=== PATIENT | female | born 1975 | race Asian ===

== ENCOUNTER 2025-07-29 15:05 | Emergency (ER) | payer SELFPAY ==
[2025-07-29] MEDS ORDERED: DIPHENHYDRAMINE 50 MG/ML VIAL ONE (15:34)
[2025-07-29] MEDS ORDERED: NA CHLORIDE 0.9% 1,000 ML ONE (15:34)
[2025-07-29] MEDS ORDERED: ONDANSETRON 4 MG/2 ML VIAL ONE (15:34)
[2025-07-29 16:17] LABS: Absolute Lymphocytes (CBC) 1.7 K/uL (0.7-4.9); Hematocrit 48.5 % (36.0-45.0); Hemoglobin 15.9 g/dL (12.0-15.0); MCH 28.2 pg (27.0-35.0); MCHC 32.8 g/dL (32.0-36.0); MCV 86.1 fL (80-100); MPV 10.6 fL (7.6-11.3); Nucleated RBC Absolute Count 0.0 (0-0); Nucleated Red Blood Cells % 0.2 % (0-0); RBC Red Blood Cell Count 5.63 M/uL (3.86-4.86); White Blood Count 7.50 thou/uL (4.3-10.9)
[2025-07-29 16:35] LABS: Anion Gap 12.5 mEq/L (5.0-15.0); BUN Blood Urea Nitrogen 8.0 mg/dL (7-18); Glucose Level 151.0 mg/dL (74-106)
[2025-07-29 16:36] LABS: ALT/SGPT 37.0 U/L (13-56); Albumin 3.5 g/dL (3.4-5.0); Albumin/Globulin Ratio 1.0 (1.1-1.8); Alkaline Phosphatase 51.0 U/L (45-117); Globulin 3.4 g/dL (2.3-3.5); Lipase 64.0 U/L (13-75)
[2025-07-29 16:37] LABS: AST/SGOT 47.0 U/L (15-37); Potassium 4.5 mEq/L (3.5-5.1)
--- NOTE | 2025-07-29 17:46 | RAD REPORT ---
EXAMINATION: CT Abdomen Pelvis W Contrast CLINICAL INDICATION: Female, 49 years old. ABD PAIN TECHNIQUE: CT abdomen and pelvis was performed, after the administration of IV contrast, [facility] Axial, sagittal and coronal reconstructions were obtained. One or more of the following dose reduction techniques were used: Automated exposure control, adjustment of the mA and k V according to patient size, and iterative reconstruction. Unless otherwise specified, incidental findings do not require dedicated imaging follow-up. COMPARISON: No prior exam. FINDINGS: LOWER CHEST: The visualized lung bases are clear. LIVER: Normal in size and contour. No focal lesion. BILIARY SYSTEM: No suspicious abnormalities. SPLEEN: Normal size. No focal lesion. PANCREAS: No mass, ductal dilation, or rain-pancreatic fluid. ADRENALS: Normal; no mass. KIDNEYS: Normal size and contour. No hydronephrosis. URINARY BLADDER: Unremarkable. GASTROINTESTINAL TRACT: No evidence of free air, significant intra-abdominal free fluid, bowel obstru ction or abscess. APPENDIX: Normal appendix. LYMPH NODES: No lymphadenopathy. MUSCULOSKELETAL: No acute or suspicious osseous abnormality. Grade 1 spondylolisthesis at L5-S1. ADDITIONAL FINDINGS: Bulky uterus with numerous fibroids most prominent along the posterior wall. IMPRESSION: No acute or concerning abnormalities seen in the abdomen or pelvis. Incidental findings as above including fibroid uterus.
[2025-07-29 18:31] LABS: Sqamous Epithelial <5 /HPF (None Seen); Urine Culture Reflex Order NOT NEEDED; Urine Microscopic Reflex YN ORDER UMIC
--- NOTE | 2025-07-29 18:33 | ER ---
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 Coronavirus screen: At this time, the client does not indicate any symptoms associated with coronavirus-19. Ebola Screen: No symptoms or risks identified at this time. Initial Sepsis Screen: Does the patient meet any 2 criteria? No. Patient's initial sepsis screen is negative. Does the patient have a suspected source of infection? No. Patient's initial sepsis screen is negative. Risk Assessment: Do you want to hurt yourself or someone else? Patient reports no desire to harm self or others. Onset of symptoms was July 29, 2025. 15:07 Method Of Arrival: Ambulatory dd2 15:07 Acuity: REYES 3 dd2 Triage Assessment: 15:07 General: Appears ill, Behavior is anxious, uncooperative. Pain: Complains of pain in dd2 suprapubic area, right lower quadrant and left lower quadrant. GI: Reports lower abdominal pain, nausea, vomiting. Derm: Rash noted that is red, raised, on right inner thigh and left inner thigh. 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 - Infectious Disease History:: Denies. - Social history:: Smoking status: Patient denies any tobacco usage or history of. Screenin:09 [facility] ED Fall Risk Assessment (Adult) History of falling in the last 3 months, km10 including since admission No falls in past 3 months (0 pts) Confusion or Disorientation No (0 pts) Intoxicated or Sedated No (0 pts) Impaired Gait No (0 pts) Mobility Assist Device Used No (0 pt) Altered Elimination No (0 pt) Score/Fall Risk Level 0 - 2 = Low Risk Oriented to surroundings, Maintained a safe environment. Abuse screen: Denies threats or abuse. Denies injuries from another. Nutritional screening: No deficits noted. Tuberculosis screening: No symptoms or risk factors identified. Assessment: 16:00 General: Appears uncomfortable, Behavior is cooperative, Reports chills for 0-12 hours. km10 Pain: Complains of pain in abdomen Pain currently is 7 out of 10 on a pain scale. Quality of pain is described as crampy, Pain began suddenly, 1 hour ago. Is continuous. 16:00 Neuro: Level of Consciousness is awake, alert, obeys commands, Oriented to person, km10 place, time, situation, Appropriate for age. Cardiovascular: Denies chest pain. Respiratory: Airway is patent Respiratory effort is even, unlabored, Respiratory pattern is regular, symmetrical. GI: Bowel sounds present X 4 quads. 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 16:09 Derm: Skin is dry, Skin temperature is cool. km10 16:16 Reassessment: Patient states feeling better. km10 18:17 Reassessment: Patient appears in no apparent distress at this time. Patient and/or km10 family updated on plan of care and expected duration. Pain level reassessed. Patient is alert, oriented x 3, equal unlabored respirations, skin warm/dry/pink. Patient states feeling better. Vital Signs: 15:07 BP 129 / 89; Pulse 70; Resp 22; Temp 97.8; Pulse Ox 100% ; dd2 16:16 Pulse 66; Temp 97.9(O); Pulse Ox 100% on R/A; km10 18:17 BP 111 / 71; Pulse 74; Resp 14; Pulse Ox 97% on R/A; km10 [place] Coma Score: 18:17 Eye Response: spontaneous(4). Motor Response: obeys commands(6). Verbal Response: km10 oriented(5). Total: 15. ED Course: 15:06 Patient arrived in ED. im 15:07 Arm band placed on left wrist. dd2 15:08 Triage completed. dd2 15:08 Joana Camacho PA-C is PHCP. sb4 15:08 Raghu Mcqueen DO is Attending Physician. sb4 15:10 Patient has correct armband on for positive identification. Bed in low position. Call km10 light in reach. Side rails up X2. Provided Education on: plan of care. 15:13 Patient placed in an exam room, on a stretcher. ll1 15:30 Marge Diaz, RN is Primary Nurse. km10 16:09 No provider procedures requiring assistance completed. Inserted saline lock: 20 gauge km10 in right antecubital area, using aseptic technique. Blood collected. Flushed with 10 mL NS. 16:09 Lipase Sent. km10 16:09 CMP Sent. km10 16:09 CBC with Diff Sent. km10 16:[address] scan at this time with True Office. km10 17:04 CT Abd/Pelvis - IV Contrast Only In Process Unspecified. EDMS 19:01 IV discontinued, intact, bleeding controlled, No redness/swelling at site. Pressure km10 dressing applied. Administered Medications: 16:01 Drug: Ondansetron IVP 4 mg IVP once; over 2 minutes Route: IVP; Site: right antecubital;km10 18:18 Follow up: Response: No adverse reaction km10 16:01 Drug: Droperidol IVP 1.25 mg IVP once Route: IVP; Site: right antecubital; km10 18:18 Follow up: Response: No adverse reaction km10 16:02 Drug: NS 0.9% IV 1000 ml IV at 1 bolus Per protocol; to be given as a bolus over 60 km10 minutes Route: IV; Rate: 1 bolus; Site: right antecubital; 19:09 Follow up: IV Status: Completed infusion km10 16:02 Drug: diphenhydrAMINE IVP 25 mg IVP once Route: IVP; Site: right antecubital; km10 18:18 Follow up: Response: No adverse reaction km10 Medication: 19:09 VIS not applicable for this client. km10 Outcome: 18:32 Discharge ordered by . sb4 19:08 Discharged to home ambulatory, with family, km10 19:08 Condition: stable 19:08 Discharge instructions given to patient, Instructed on discharge instructions, follow up and referral plans. Demonstrated understanding of instructions, follow-up care, 19:09 Patient left the ED. km10 Signatures: Dispatcher [employer] EDMS Zahra Rosario RN RN ll1 Joana Camacho, PA-C PA-C sb4 Nessa Cuadra DIANA, RN RN dd2 Marge Diaz, RN RN km10 Corrections: (The following items were deleted from the chart) 18:17 16:16 Pulse 66bpm; Pulse Ox 100% RA; Temp 9.9F; km10 km10
--- NOTE | 2025-07-29 18:33 | EDPHYS ---
Physician Documentation [facility] Name: Rachel Urbano Age: 49 yrs Sex: Female : 1975 Arrival Date: 07/29/2025 Time: 15:05 Bed 16 Private MD: ED Physician Raghu Mcqueen HPI: 07/29 15:16 This 49 yrs old Female presents to ER via Ambulatory with complaints of Abdominal Pain. sb4 15:16 Patient reports sudden onset of hives, lower abdominal pain, and 1 episode of emesis. sb4 Denies any prior episodes of this. Denies any medical history. Denies any new medications. 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 - Infectious Disease History:: Denies. - Social history:: Smoking status: Patient denies any tobacco usage or history of. ROS: 15:16 Constitutional: Negative for fever, chills, and weight loss, sb4 15:16 Abdomen/GI: Positive for abdominal pain, nausea and vomiting, 15:16 All other systems are negative, Exam: 18:00 Head/Face: Normocephalic, atraumatic. Eyes: Extra-ocular motions intact. Periorbital sb4 areas with no swelling, redness, or edema. ENT: Mucous membranes moist. Cardiovascular: Regular rate and rhythm with a normal S1 and S2. Respiratory: No increased work of breathing, no retractions or nasal flaring. Skin: Warm, dry with normal turgor. Normal color with no rashes, no lesions, and no evidence of cellulitis. 18:00 Constitutional: The patient appears alert, awake, uncomfortable, 18:00 Abdomen/GI: Inspection: abdomen appears normal, Bowel sounds: normal, Palpation: soft, mild abdominal tenderness, in the suprapubic area, Vital Signs: 15:07 BP 129 / 89; Pulse 70; Resp 22; Temp 97.8; Pulse Ox 100% ; dd2 16:16 Pulse 66; Temp 97.9(O); Pulse Ox 100% on R/A; km10 18:17 BP 111 / 71; Pulse 74; Resp 14; Pulse Ox 97% on R/A; km10 [place] Coma Score: 18:17 Eye Response: spontaneous(4). Motor Response: obeys commands(6). Verbal Response: km10 oriented(5). Total: 15. MDM: 15:08 Medical Screening Exam initiated sb4 18:00 Differential diagnosis: appendicitis, bowel obstruction, cholecystitis, Cholelithiasis, sb4 diverticulitis, non-specific abd pain, pancreatitis, Peptic Ulcer Disease, urinary tract infection. 18:33 Data reviewed: vital signs, nurses notes, lab test result(s), radiologic studies, and sb4 as a result, I will discharge patient. Counseling: I had a detailed discussion with the patient and/or guardian regarding the historical points, exam findings, and any diagnostic results supporting the discharge/admit diagnosis, lab results, radiology results, the need for outpatient follow up, for definitive care, to return to the emergency department if symptoms worsen or persist or if there are any questions or concerns that arise at home. 07/29 15:16 Order name: CBC with Diff; Complete Time: 16:22 sb4 07/29 15:16 Order name: CMP; Complete Time: 16:38 sb4 07/29 15:16 Order name: Lipase; Complete Time: 16:38 sb4 07/29 15:17 Order name: UA Rfx Tomás Cult if indicated; Complete Time: 18:31 sb4 07/29 15:16 Order name: CT Abd/Pelvis - IV Contrast Only; Complete Time: 17:46 sb4 07/29 15:16 Order name: IV Saline Lock; Complete Time: 16:01 sb4 07/29 15:16 Order name: Labs collected and sent; Complete Time: 16:01 sb4 07/29 17:47 Order name: PO challenge; Complete Time: 18:29 sb4 Administered Medications: 16:01 Drug: Ondansetron IVP 4 mg IVP once; over 2 minutes Route: IVP; Site: right antecubital;km10 18:18 Follow up: Response: No adverse reaction 10 16:01 Drug: Droperidol IVP 1.25 mg IVP once Route: IVP; Site: right antecubital; km10 18:18 Follow up: Response: No adverse reaction [facility] 16:02 Drug: NS 0.9% IV 1000 ml IV at 1 bolus Per protocol; to be given as a bolus over 60 km10 minutes Route: IV; Rate: 1 bolus; Site: right antecubital; 19:09 Follow up: IV Status: Completed infusion km10 16:02 Drug: diphenhydrAMINE IVP 25 mg IVP once Route: IVP; Site: right antecubital; km10 18:18 Follow up: Response: No adverse reaction km10 Disposition: 15:42 I was immediately available on-site in the Emergency Department for consultation in the ms3 care of the patient. Disposition Summary: 07/29/25 18:32 Discharge Ordered Notes: Location: Home sb4 Problem: new sb4 Symptoms: are resolved sb4 Condition: Stable sb4 Diagnosis - Lower abdominal pain, unspecified sb4 Followup: sb4 - With: Private Physician - When: As needed - Reason: Recheck today's complaints, Re-evaluation by your physician Discharge Instructions: - Discharge Summary Sheet sb4 - Abdominal Pain, Adult, [id number] sb4 Forms: - Medication Reconciliation Form sb4 - Antibiotic Education sb4 - Prescription Opioid Use sb4 - Patient Portal Instructions sb4 - Leadership Thank You Letter sb4 Signatures: Dispatcher [employer] EDMS Raghu Mcqueen DO DO ms3 Joana Camacho PA-C PAAntC sb4 Marge Diaz, RN RN km10 Corrections: (The following items were deleted from the chart) 15:17 15:17 UA Rfx Tomás Cult if indicated+[id number].[email or web address].BRZ ordered. EDMS EDMS
[2025-07-29 21:54] VITALS: TEMP 97.9
[2025-07-29 21:55] VITALS: BP 111/71; O2SAT 97
== END 2025-07-29 19:09 | disposition home or self-care (01) ==
LOC: ER 15:05
DX: R10.30 Lower abdominal pain, unspecified (principal)
CPT/HCPCS: 36415; 74177; 80053; 81001; 83690; 85025; 96361; 96374; 96375; 99284; J1200; J1790; J2405; J7030; Q9967